=== PATIENT | male | born 1950 | race Caucasian/White ===

== ENCOUNTER 2019-01-03 08:07 | Outpatient (REF) | payer MEDICARE, OTHER, SELFPAY ==
[2019-01-03 13:46] LABS: ALT 24 U/L (12-78); AST 18 U/L (15-37); Albumin 3.7 g/dL (3.4-5.0); Alkaline Phosphatase 65 U/L (46-116); Anion Gap 7.6 mmol/L (3-11); BUN 16 mg/dL (7-18); Bilirubin, Total 0.5 mg/dL (0.2-1.0); CO2 30.4 mmol/L (21.0-32.0); CREATININE 0.97 mg/dL (0.70-1.30); Calcium 8.5 mg/dL (8.5-10.1); Calculated LDL 100 mg/dL; Chloride 105 mmol/L (98-107); Cholesterol 169 mg/dL (50-200); Glucose 94 mg/dL (70-100); HDL Cholesterol 53 mg/dL (40-60); Potassium 4.5 mmol/L (3.5-5.1); Sodium 143 mmol/L (136-145); Total Protein 7.1 g/dL (6.4-8.2); Triglyceride 83 mg/dL (30-150)
== END 2019-01-03 08:27 ==
LOC: NCHCN 08:07
PROVIDERS: PCP Family Medicine; Visit Provider Family Medicine
DX: E78.5 Hyperlipidemia, unspecified (principal)
CPT/HCPCS: 80053; 80061; 83721

== ENCOUNTER 2019-09-27 15:27 | Outpatient (CLI) | payer MEDICARE, SELFPAY ==
[2019-09-29 15:51] LABS: SARS-CoV-2 RNA Undetected (Undetected); SARS-CoV-2 Specimen Source Nasopharynx
== END 2019-09-27 15:47 ==
PROVIDERS: PCP Family Medicine; Visit Provider Nurse Practitioner Family
DX: Z20.828 Contact with and (suspected) exposure to other viral communicable diseases (principal); J06.9 Acute upper respiratory infection, unspecified
CPT/HCPCS: U0003

== ENCOUNTER 2019-12-16 03:39 | Outpatient (CLI) | payer MEDICARE, SELFPAY ==
--- NOTE | 2019-12-16 | DI.US_ITS ---
EXAM: US ABDOMEN CLINICAL HISTORY: RUQ PAIN, R10.11,SUSPECT CHOLECYSTITIS TECHNIQUE: Ultrasound abdomen performed using standard protocol. COMPARISON: No exams were available for comparison FINDINGS: ABDOMINAL AORTA AND IVC: Visualized portions normal caliber. PANCREAS: Normal where visualized. LIVER: Normal. Hepatopedal flow in the Portal Vein. GALLBLADDER: Cholelithiasis. Immobile gallstone in the neck of the gallbladder. Mild gallbladder wa ll thickening. No pericholecystic fluid identified. BILIARY SYSTEM: Common bile duct measures 2.9 mm. No intrahepatic biliary ductal dilation. CARTER'S SIGN: Positive KIDNEYS: Kidneys are symmetric in size. No evidence of renal calculi. No evidence of hydronephrosis. 2 x 2 x 1.8 cm simple cyst on the left kidney. SPLEEN: Not enlarged. ASCITES: None seen. IMPRESSION: Cholelithiasis including an immobile stone in the neck of the gallbladder, mild gallbladder wall thic kening and positive sonographic Carter sign. The findings raise a question of acute cholecystitis. DATA REPOSITORY:
== END 2019-12-16 03:59 ==
PROVIDERS: PCP Family Medicine; Visit Provider Physician Assistant
DX: R10.11 Right upper quadrant pain (principal); K80.60 Calculus of gallbladder and bile duct with cholecystitis, unspecified, without obstruction; K82.8 Other specified diseases of gallbladder
CPT/HCPCS: 76700

== ENCOUNTER → 2019-12-23 08:28 | Outpatient (BNVA) | payer MEDICARE, SELFPAY | PROVIDERS: PCP Family Medicine; Referring Provider Family Medicine; Visit Provider Surgery | DX: K80.50 Calculus of bile duct without cholangitis or cholecystitis without obstruction (principal); Z01.818 Encounter for other preprocedural examination | CPT/HCPCS: 99203 ==

== ENCOUNTER 2019-12-26 08:20 | Outpatient (CLI) | payer MEDICARE, OTHER, SELFPAY ==
[2019-12-27 19:47] LABS: COVID-19 RT-PCR UVMMC Result Negative (Negative)
== END 2019-12-26 08:40 ==
PROVIDERS: PCP Family Medicine; Visit Provider Surgery
DX: Z03.818 Encounter for observation for suspected exposure to other biological agents ruled out (principal); Z01.818 Encounter for other preprocedural examination
CPT/HCPCS: U0003

== ENCOUNTER 2019-12-28 08:29 | Day surgery (SDC) | payer MEDICARE, OTHER, SELFPAY ==
[2019-12-28] VITALS (7 sets, daily range): BP systolic 114–163; BP diastolic 57–82; PULSE 53–60; RESP 16–21; TEMP 36.3–36.7; O2SAT 96–97
--- NOTE | 2019-12-28 06:52 | ROE_ITS ---
Date of service: 12/28/19 Time of Service: 11:41 Operative Note Operative Note DATE OF PROCEDURE: 12/28/19 PRE-OP DIAGNOSIS: Biliary cholic POST-OP DIAGNOSIS: other (CHronic cholecystitis and cholelithiasis) PROCEDURE: Laparoscopic Cholecystectomy SURGEON: Esperanza Raya [employer]CIAL [employer]OOFING ESTIMATOR: Toshia Fleming ANESTHESIA: GETA (ASA 2/ Mikhail Tolbert CRNA) and local (1% Lidocaine mixed with 0.5% bipivocaine, exparel 10 cc) ESTIMATED BLOOD LOSS: 50 PATHOLOGY: other (Gallbladder ) COMPLICATIONS: None Patient was transported to: PACU Patient's condition: stable Indications: Healthy 69-year-old gentleman with 2 weeks worth of right upper quadrant pain. Ultrasound shows a stone in the neck of the gallbladder as well as mild wall thickening. He still has a Carter sign today. He has no fevers or chills and is able to eat. We discussed the biliary system anatomy and went over a laparoscopic cholecystectomy, possible intraoperative cholangiogram and possible open cholecystectomy. We reviewed risks and benefits. We discussed pain control with Tylenol ibuprofen and hydrocodone. We went over restrictions after surgery. We also discussed COVID testing prior to surgery. And discussed quarantine after his he is tested. Informational pamphlets were given both on the surgery as well as postoperative instructions Recommended Laparoscopic Cholecystectomy Risks, benefits, complications were reviewed with the patient in the office. Complications include but are not limited to bleeding, infection, injury to stomach, small bowel and large bowel, injury to the pancreas, injury to the common bile duct necessitating drainage and referral to tertiary center for repair, bile leak, adverse reactions to the medications, complications of intubation including a sore throat or injury to the uvula, NE, stroke and even . Questions were entertained and answered to her satisfaction and she wished to proceed. No guarantees were given or implied. Findings: Thickened gallbladder wall, 2 larger stones in the neck of the gallbladder and multiple small stones Procedure Description: After informed consent was obtained the patient was brought to the operating room, placed in a supine position and monitors were applied. SCDs were applied to his lower extremities and he was placed under general anesthesia and intubated with some difficulty. Once intubated a Butler catheter was placed in a standard sterile fashion. The abdomen was then prepped and draped in a sterile fashion using ChloraPrep. At this point a timeout was done and the patient's name, date of , procedure type, allergies to medications, metal in her body, antibiotic and DVT prophylaxis were reviewed and fire risk was assessed. At this point half percent Marcaine with epi mixed with 1% Lidocaine was injected just below the umbilicus into the dermis and subcutaneous tissue. A 5 mm incision was made with an 11 blade. The skin next to the incision was grasped with penetrating towel clamps and while pulling up on the skin a 5 mm port was placed under direct visualization. The abdomen was insuflated and then 3 more ports were placed. A 12 mm port was placed in the subxiphoid area and two 5 mm ports were placed in the right upper quadrant under direct visualization. The liver was inspected and was normal. The patient's bed was then turned to the left and the head was brought up. I attempted to grasp the Gallbladder at the body but it was too thick. A Laparoscopic needle was carefully placed into the Gallbladder and 30 cc of bile was removed. The Gallbladder was then grasped and pushed towards the right shoulder, this allowed me to visualize the neck of the gallbladder. There was some omentum attached to the Gallbladder wall and this was removed using a [place] grasper with cautery. The neck was grasped and pulled towards the right flank and down allowing me to visualize the lymph node. Using a [place] dissector with cautery the lymph node was gently dissected away from the tissues and the fatty tissue was also dissected away. The cystic duct was identified it was normal in size. The duct was dissected 360 degrees using the [place] dissector in order for me to visualize its entrance into the gallbladder. Liver was noted behind it. There were no other structures right behind. Critical view was achieved. 3 clips were placed one proximal and 2 distal and the cystic duct was cut. The cystic artery was then identified and dissected 360 degrees. It was located just medial to the cystic duct. It was visualized going into the gallbladder. There was a small accessory branch noted coming off the cystic artery. Once dissected 3 more clips were placed one proximal and 2 distal on the main cystic artery and the branch. Both were then cut. Using the hook dissector the gallbladder was then dissected away from the liver bed and placed into an Endo Catch bag and pulled through the 12 mm port site. The port site had to be enlarged in order for the Gallbladder to be removed. The 12 mm port was placed back into the abdomen under direct visualization. The liver bed was inspected no bleeding was noted. Because the subxiphoid incision was so large I removed the port and the fascia was closed with 0 vicryl interrupted stitches. The abdomen was then irrigated with a liter normal saline until the effluent was clear. Once all the fluid was suctioned out, the rest of the local anesthetic mixture was injected above the liver to help with postoperative right shoulder pain. The fascia along the subxiphoid incision was inspected and there was no bleeding noted from the fascia. The 2 right upper quadrant ports were removed under direct visualization and no bleeding was noted from the fascia. The abdomen was deflated completely and lastly the umbilical port was removed. The skin was cleaned and the incisions were closed with 4-0 Vicryl. The skin was dried and skin affix was applied over the closed incisions. Needle and sponge counts were correct at the end of the case. The Butler catheter was removed. At this point the patient was woken up, extubated and taken back to recovery in stable condition. There were no immediate complications.
--- NOTE | 2019-12-28 06:54 | PDOC.DSDIS_ITS ---
Discharge Plan Disposition Patient Disposition: HOME Condition: Good Discharge Details Reason For Visit: Laparoscopic Cholecystectomy Attending Provider: Esperanza Raya Primary Care Provider: Izabel Nicole Home Meds and New Rx's Prescriptions: Continued cholecalciferol (vitamin D3) 25 mcg (1,000 unit) capsule 25 mcg PO DAILY RF: 0 ibuprofen 200 mg Tablet 200 mg PO PRN PRNRF: 0 Discharge Instructions Instructions: Laparoscopic Cholecystectomy (DC) Additional Instructions: Activity at Home after surgery: 1. Make sure you walk outside at least 4 times per day 2. You should be able to climb a flight of stairs 3. No driving while in pain or taking pain medications 4. No strenuous activity or heavy lifting for 2 weeks (laparoscopic surgery) Diet, Nutrition, & wound healin. Avoid alcohol until after you are recovered from your surgery 2. Make sure to eat plenty of lean protein (meat, fish, eggs, cottage cheese, beans) 3. Eat a variety of fruits and vegetables. Eat plenty of high fiber foods to avoid constipation. 4. Drink plenty of liquids to stay hydrated and avoid constipation Pain Medications: 1. Tylenol 650 mg every 6 hours and Ibuprofen 600 mg every 6 hours. May alternate between the 2 every 3 hours 2. If a narcotic has been prescribed take as directed only for breakthrough pain For Constipation: 1. Take Milk of Magnesia or MiraLax as needed for constipation Other: 1. You may shower daily. Do not scrub the incisions 2. Do not soak the incisions for 1 week 3. You may alternate ice and heat as needed for pain and swelling Wound Care: 1. Keep the incisions clean and dry Please call our office if you develop: 1. Fevers >101.5 2. Nausea or Vomiting 3. Worsening pain 4. Redness and thick discharge from the wounds If after hours please call the Hospital at and ask to speak to the on-call surgeon Referrals: Esperanza Raya MD [ [facility] STAFF PHYSICIAN] - 01/10/20 10:00 am Activity:: no lifting, pulling or pushing >20 lb for 2 weeks Remove Dressings/Wound Care:: 24 hours Shower/Bathe:: 24 hours Diet:: low fat x 2 weeks Discharge Orders Discharge Orders: Discharge Order (Routine); Ordered 12/28/19 Ordered By: Esperanza Raya
[2019-12-28] MEDS: Celecoxib 200 MG CAP PO (08:56)
[2019-12-28] MEDS: Acetaminophen 500 MG TAB 1000 MG PO (08:56)
[2019-12-28] MEDS: Lactated Ringers 1,000 ML 80 ML IV (09:07)
[2019-12-28] MEDS: ceFAZolin 2 GM/50 ML BAG IVPB (09:44)
[2019-12-28] MEDS: Lidocaine 1% Multi-Dose 50 ML VIAL (10:24)
[2019-12-28] MEDS: Bupivacaine 0.5% Pres-Free 30 ML VIAL (10:25)
--- NOTE | 2019-12-28 10:45 | GB_PTH ---
PATIENT: Jefry Harris LOC: [facility] U#:[id number] AGE/SX: 69/M ROOM: RE12/28/[address]: Esperanza Raya MD : [id number] BED: DIS: 12/28/2019 SPEC #: [id number] RECD: 12/28/19 12:27 STATUS: DAVID REQ #: [id number] HEATHER: 12/28/19 10:[address]: Esperanza Raya DEPT: Surgical Specimen RECD BY: Allison Silverman ENTERED: 12/28/19 12:27 SP TYPE: GB OTHR DR: Izabel Nicole Tissues: 1 - GALLBLADDER Procedures: GROSS AND MICRO LEVEL 3 Comments: [id number]
[2019-12-28] MEDS: Bupivacaine LIPOSOME/PF 133 MG/10 ML VIAL IJ (11:15)
[2019-12-28] MEDS: Ketorolac 15 MG/ML VIAL (11:55)
== END 2019-12-28 14:37 | disposition home or self-care (01) ==
LOC: SUR 08:29
PROVIDERS: PCP Family Medicine; Visit Provider Surgery
PROC: 0FT44ZZ Resection of Gallbladder, Percutaneous Endoscopic Approach (ICD-10-PCS; CPT 47562; principal; 2019-12-28 10:15)
DX: K80.00 Calculus of gallbladder with acute cholecystitis without obstruction (principal)
CPT/HCPCS: 47562; 88304; J0690; J1100; J1885; J2001; J2405; J2704

== ENCOUNTER → 2020-01-10 09:55 | Outpatient (BNVA) | payer MEDICARE, OTHER, SELFPAY | PROVIDERS: PCP Family Medicine; Referring Provider Family Medicine; Visit Provider Surgery | DX: Z48.815 Encounter for surgical aftercare following surgery on the digestive system (principal); Z90.49 Acquired absence of other specified parts of digestive tract ==

== ENCOUNTER 2020-10-16 13:35 | Outpatient (REF) | payer MEDICARE, OTHER, SELFPAY ==
[2020-10-17 12:28] LABS: COVID-19 RT-PCR UVMMC Result Negative (Negative)
== END 2020-10-16 13:36 | disposition home or self-care (01) ==
LOC: NCHCN 13:35
PROVIDERS: PCP Family Medicine; Visit Provider Family Medicine
DX: Z20.822 Contact with and (suspected) exposure to COVID-19 (principal)
CPT/HCPCS: U0003; U0005

== ENCOUNTER 2021-02-19 07:27 | Outpatient (REF) | payer MEDICARE, SELFPAY ==
[2021-02-19 15:20] LABS: HCT 43.3 % (40.0-50.0); HGB 14.3 g/dL (13.5-17.5); MCH 29.4 pg (27.0-33.0); MCV 88.9 fL (80-95); MPV 10.3 fL (8.0-11.0); Platelet Count 212 10^3/uL (130-400); RBC 4.87 10^6/uL (4.36-5.78); RDW 12.9 % (11.8-14.1); RDW-SD 41.8 fL; WBC 6.96 10^3/uL (4.4-10.8)
[2021-02-19 15:25] LABS: ALT 26 U/L (16-63); AST 22 U/L (15-37); Albumin 4.1 g/dL (3.4-5.0); Alkaline Phosphatase 63 U/L (46-116); BUN 17 mg/dL (7-18); Bilirubin, Total 0.6 mg/dL (0.2-1.0); Calculated LDL 105 mg/dL (<100); Chloride 102 mmol/L (98-107); Cholesterol 178 mg/dL (<200); Glucose 87 mg/dL (74-106); HDL Cholesterol 61 mg/dL (40-60); Potassium 4.2 mmol/L (3.5-5.1); Sodium 141 mmol/L (136-145); Total Protein 7.4 g/dL (6.4-8.2); Triglyceride 63 mg/dL (<150)
[2021-02-19 22:27] LABS: PSA, Screening 1.8 ng/mL (0.0-4.5)
== END 2021-02-19 07:28 ==
LOC: NCHCN 07:27
PROVIDERS: PCP Family Medicine; Visit Provider Family Medicine
DX: E78.5 Hyperlipidemia, unspecified (principal); N40.0 Benign prostatic hyperplasia without lower urinary tract symptoms; Z12.5 Encounter for screening for malignant neoplasm of prostate
CPT/HCPCS: 80053; 80061; 84153; 85027